=== PATIENT | female | born 1970 | race Caucasian/White ===

== ENCOUNTER 2023-09-20 06:04 | Inpatient (IN) | payer SELFPAY ==
[2023-09-20] VITALS (13 sets, daily range): BP systolic 0–114; BP diastolic 46–66; BMI 30.1
[2023-09-20] MEDS: CELEBREX 200 MG PO (06:37)
[2023-09-20] MEDS: NEURONTIN 300 MG PO (06:38)
[2023-09-20] MEDS: NORMOSOL-R 1000 IV (06:51)
[2023-09-20] MEDS: TYLENOL 1000 MG PO (07:01)
[2023-09-20] MEDS: ZOFRAN 4 MG IV (16:00)
[2023-09-20] MEDS: DILAUDID 0.25 MG IV (16:25)
[2023-09-20] MEDS: D5/0.45%NACL 1000 IV (16:56)
--- NOTE | 2023-09-20 17:30 | PTCARENOTE ---
Patient arrived from PACU @17:05; VSS, patient drowsy but arousable, call epstein in reach, assessment as documented, admission completed via medical record, sister at bedside.
[2023-09-20] MEDS: NORCO 5/325 2 TABLET PO (19:13)
[2023-09-20 19:39] LABS: Glucose - Point of Care 116 mg/dl (70-99)
[2023-09-20] MEDS: KEFLEX 500 MG PO (20:30)
[2023-09-20] MEDS: TRANSDERM-SCOP 1 PATCH TRANSDERM (21:28)
[2023-09-21] MEDS: NORCO 5/325 2 TABLET PO ×2 (01:43→17:27)
[2023-09-21] MEDS: D5/0.45%NACL 1000 IV (01:46)
[2023-09-21 03:31] VITALS: BP 88/47
--- NOTE | 2023-09-21 05:00 | PTCARENOTE ---
19:30 pt was very vocal , yelling and screaming out to off-going nurse as I went in to introduce myself on hand off report. Pt was not receptive to nursing assessment or safety modalities for her care. Pt demanding to get out of bed while feeling
lightheaded, (hx dx of orthostatic hypotension) yelling her bp was low and not having her IVF in place. Pt did rec'v 2 [place] at 19:13 for her discomfort, she was very anxious and did not allow staff to assist her. Pt declined offer of bedpan,
bedside commode when she needed to void. A short moment later I observed pt in the restroom with the tech at her side and she had disconnected her IVF.
[2023-09-21 07:20] VITALS: BP 75/48
[2023-09-21] MEDS: KEFLEX 500 MG PO (08:24)
[2023-09-21 09:28] VITALS: BP 94/48
--- NOTE | 2023-09-21 09:58 | PTCARENOTE ---
Patient c/o dizziness when elevating HOB for breakfast. BP 75/48. Plan is for patient to eat breakfast, re check BP before ambulating. Repeat BP 94/48, patient still c/o feeling dizzy. Patient asking to ambulate in halls, staff asked
patient to not ambulate at present due to BP. Patient disconnected her IVF and ambulated to bathroom without staff. Physician notified.
--- NOTE | 2023-09-21 10:23 | CM ---
Reviewed the chart notes and spoke with the patient at the bedside. Patient resides with her spouse in a three story home with no steps to enter. The patient reports on DME is a nebulizer. No VN/SNF in the past. The patient confirmed her
pharmacy of choice is the [facility]. The patient anticipates being discharged to home with no needs. Patient's spouse to provide transportation. CM continues to be available to patient/family and is monitoring medical plan for
needs at discharge.
Plan: Discharge to home when medically stable.
[2023-09-21] MEDS: NSS 500 IV (11:00)
[2023-09-21 11:15] VITALS: BP 110/64
[2023-09-21] MEDS: TYLENOL 650 MG PO (11:38)
[2023-09-21 15:15] VITALS: BP 112/67
--- NOTE | 2023-09-21 16:24 | PTCARENOTE ---
Patient has repeatedly reached out to physician's office demanding to be discharged. Patient has spoken to office staff (Cassidy). Patient has come out to desk >10 times telling RN the discharge order was sent. RN checked each time and no discharge
order was entered as of yet. Patient states, 'I should not have to call the doctor for orders.' RN again asked patient not to call the doctor. RN reviewed plan of care with patient early AM. RN TT physician and physician relied 'Cassidy already
spoke with you.' Cassidy has been speaking with patient, no one from office has reached out to RN. RN asked patient not to override our system and discharge process.
--- NOTE | 2023-09-21 17:25 | PTCARENOTE ---
Patient assisted into wheelchair for discharge. Patient tearful due to the pain. Patient agreeable to taking [place].
== END 2023-09-21 17:30 | disposition home or self-care (01) | DRG 607 ==
LOC: 2 SOUTH 06:04
PROVIDERS: ADMITTING PHYSICIAN Otolaryngology
DX: Z41.1 Encounter for cosmetic surgery (principal); J45.909 Unspecified asthma, uncomplicated; Z79.899 Other long term (current) drug therapy; Z87.19 Personal history of other diseases of the digestive system; Z87.891 Personal history of nicotine dependence
CPT/HCPCS: 82962; C1729